=== PATIENT | female | born 1980 | race Two or more races ===

== ENCOUNTER 2019-01-28 09:59 | Outpatient (CLI) | payer OTHER | END 2019-01-28 10:15 | disposition home or self-care (01) | LOC: LAB 09:59 | DX: E11.9 Type 2 diabetes mellitus without complications (principal); I10 Essential (primary) hypertension; E03.8 Other specified hypothyroidism; E78.2 Mixed hyperlipidemia; Z12.11 Encounter for screening for malignant neoplasm of colon; N63.11 Unspecified lump in the right breast, upper outer quadrant; N80.8 Other endometriosis ==

== ENCOUNTER 2019-01-28 10:27 | Outpatient (CLI) | payer OTHER | END 2019-01-28 17:00 | disposition home or self-care (01) | LOC: SONOGRAMA 10:27 | DX: J44.9 Chronic obstructive pulmonary disease, unspecified (principal); R10.84 Generalized abdominal pain; N63.11 Unspecified lump in the right breast, upper outer quadrant ==

== ENCOUNTER 2019-02-05 09:08 | Outpatient (CLI) | payer OTHER | END 2019-02-05 17:00 | disposition home or self-care (01) | LOC: SONOGRAMA 09:08 → MAMO-SONO 09:15 → SONOGRAMA 17:00 | DX: R10.30 Lower abdominal pain, unspecified (principal) ==